=== PATIENT | male | born 1935 ===

== ENCOUNTER 2018-03-24 07:53 | Outpatient (CLI) | payer OTHER ==
[~2018-03-24] VITALS: Ht 152.4 cm; Wt 81.6 kg
[~2018-03-24 07:53] MED LIST: COREG CR10 MG; COZAAR25 MG; HUMULIN 70/30 V10 ML; SALAGEN5 MG PO; ST. JOSEPH ASPI81 M3
== END 2018-03-24 08:15 | disposition home or self-care (01) ==
LOC: OFIC 805 07:53
DX: E86.0 Dehydration (principal); C01 Malignant neoplasm of base of tongue; H61.23 Impacted cerumen, bilateral; J37.0 Chronic laryngitis; H90.3 Sensorineural hearing loss, bilateral

== ENCOUNTER 2018-07-28 08:26 | Outpatient (CLI) | payer OTHER ==
[~2018-07-28] VITALS: Ht 152.4 cm; Wt 77.1 kg
== END 2018-07-28 08:40 | disposition home or self-care (01) ==
LOC: OFIC 805 08:26
DX: C01 Malignant neoplasm of base of tongue (principal); H90.3 Sensorineural hearing loss, bilateral; R68.2 Dry mouth, unspecified; J37.0 Chronic laryngitis; D23.21 Other benign neoplasm of skin of right ear and external auricular canal

== ENCOUNTER 2018-08-04 07:54 | Outpatient (CLI) | payer OTHER ==
[~2018-08-04] VITALS: Ht 152.4 cm; Wt 77.1 kg
== END 2018-08-04 08:10 | disposition home or self-care (01) ==
LOC: OFIC 805 07:54
DX: C01 Malignant neoplasm of base of tongue (principal); C44.202 Unspecified malignant neoplasm of skin of right ear and external auricular canal

== ENCOUNTER 2018-08-25 08:14 | Outpatient (CLI) | payer OTHER ==
[~2018-08-25] VITALS: Ht 152.4 cm; Wt 77.1 kg
== END 2018-08-25 08:30 | disposition home or self-care (01) ==
LOC: OFIC 805 08:14
DX: J37.0 Chronic laryngitis (principal); C44.202 Unspecified malignant neoplasm of skin of right ear and external auricular canal; C01 Malignant neoplasm of base of tongue; H90.3 Sensorineural hearing loss, bilateral

== ENCOUNTER 2018-09-07 05:40 | Day surgery (SDC) | payer OTHER ==
[~2018-09-07 05:40] MED LIST changes: +ATORVASTATIN CA40 MG PO; +COREG CR10 MG PO
[2018-09-07] MEDS ORDERED: CIPRO500 MG PO (09:03)
[2018-09-07] MEDS ORDERED: MAPAP500 MG PO (09:05)
== END 2018-09-07 10:20 | disposition home or self-care (01) ==
LOC: CIR.AMB 05:40
DX: C44.219 Basal cell carcinoma of skin of left ear and external auricular canal (principal)

== ENCOUNTER 2018-09-15 07:28 | Outpatient (CLI) | payer OTHER ==
[~2018-09-15] VITALS: Ht 152.4 cm; Wt 77.1 kg
[~2018-09-15 07:28] MED LIST changes: +CIPRO500 MG PO; +MAPAP500 MG PO
== END 2018-09-15 07:40 | disposition home or self-care (01) ==
LOC: OFIC 805 07:28
DX: R25.2 Cramp and spasm (principal); C44.202 Unspecified malignant neoplasm of skin of right ear and external auricular canal; D23.20 Other benign neoplasm of skin of unspecified ear and external auricular canal; H90.3 Sensorineural hearing loss, bilateral; C02.9 Malignant neoplasm of tongue, unspecified

== ENCOUNTER 2018-09-22 08:51 | Outpatient (CLI) | payer OTHER ==
[~2018-09-22] VITALS: Ht 152.4 cm; Wt 77.1 kg
[2018-09-22] MEDS ORDERED: CLINDAMYCIN HC300 MG PO (10:15)
== END 2018-09-22 09:10 | disposition home or self-care (01) ==
LOC: OFIC 805 08:51
DX: C02.9 Malignant neoplasm of tongue, unspecified (principal); H90.3 Sensorineural hearing loss, bilateral; C44.209 Unspecified malignant neoplasm of skin of left ear and external auricular canal; R25.2 Cramp and spasm; M87.88 Other osteonecrosis, other site